=== PATIENT | female | born 1940 | race Caucasian/White ===

== ENCOUNTER 2017-01-07 09:51 | Inpatient (IN) | payer MEDICARE, BC ==
[2017-01-01 16:21] LABS: HEMATOCRIT 35.5 % (36.0-48.0); HEMOGLOBIN 11.1 g/dL (12.0-16.0)
[2017-01-01 16:32] LABS: BUN (BLOOD UREA NITROGEN) 9 MG/DL (6-23); CALCIUM, SERUM 8.5 MG/DL (8.5-10.4); CHLORIDE, SERUM 97 MMOL/L (96-112); CO2 (CARBON DIOXIDE) 29 MMOL/L (24-34); CREATININE 0.56 MG/DL (0.55-1.02); GFR AFRICAN AMERICAN 104 ML/MIN (>=60); GFR NON AFRICAN AMERICAN 90 ML/MIN (>=60); GLUCOSE, SERUM 92 MG/DL (60-99); POTASSIUM, SERUM 4.6 MMOL/L (3.5-5.3); SODIUM, SERUM 133 MMOL/L (135-148)
--- NOTE | ~2017-01-07 | OP ---
Record Of Operation [place] [address] [place]. [address] NAME: SAAD STORY : 39 STATUS : ADM IN PAT#: [id number] AGE: 76 ADM/REG DATE : 01/07/17 MR#: [id number] REPORT SERV DATE: 01/08/17 DICTATED BY: SHAE ANDRADE DATE: 01/07/17 REPORT STATUS : Draft TRANSCRIBED BY: MODL DATE: 01/07/17 DATE OF PROCEDURE: 01/07/2017 DICTATED BY: Josué Avery M.D. PREOPERATIVE DIAGNOSIS: Incisional ventral hernia. POSTOPERATIVE DIAGNOSIS: Incisional ventral hernia. PROCEDURES: 1. Laparoscopic ventral hernia repair with mesh. 2. Laparoscopic lysis of adhesions. SURGEON: Katerina Andrade M.D. RESIDENT: Josué Avery M.D. ANESTHESIA: General. ESTIMATED BLOOD LOSS: Less than 10 mL. IV FLUIDS: 1000 mL crystalloid. SPECIMEN: None. DRAINS: None. COMPLICATIONS: None. FINDINGS: The patient had two hernia defects showed at the midline at the umbilicus and one just superior to that. These hernia defects easily came together and were reapproximated with 0 Nurolon interrupted stitches. We had good 3.5 cm over extension coverage inferior to superior and then 5 cm laterally. INDICATIONS FOR PROCEDURE: This is a 76-year-old female, who has a symptomatic incisional ventral hernia from a previous laparoscopic colon resection in 2010. The patient sought surgery help to get this hernia repaired since it caused her considerate amount of pain. The risks, benefits, and alternatives were explained to the patient. The patient expressed clear understanding and wished to proceed forward with this elective procedure. DESCRIPTION OF PROCEDURE: After informed consent was obtained, the patient was taken back to the operative theatre. The patient was laid on the operating room table in supine position. The patient was given adequate analgesia and anesthesia and then successfully endotracheally intubated. The surgery site was then prepped and draped in a standard fashion. A formal time-out was then performed. Appropriate preoperative antibiotics had been administered. All present in the operating room were in agreement and elected to proceed forward with the Record Of Operation [place] [address] [facility] [place]. [address] NAME: SAAD STORY : 39 STATUS : ADM IN PAT#: [id number] AGE: 76 ADM/REG DATE : 01/07/17 MR#: [id number] REPORT SERV DATE: 01/08/17 DICTATED BY: SHAE ANDRADE DATE: 01/07/17 REPORT STATUS : Draft TRANSCRIBED BY: ELIUD DATE: 01/07/17 procedure. We began by administering local anesthetic and the left upper quadrant making an incision approximately 2 cm length, dissecting down bluntly and sharply incised the anterior rectus sheath below the dissected muscle and posterior rectus sheath and incised this. We bluntly tried to enter into the abdomen. Concern was the patient had a previous colon resection and in the operative note had a splenic flexure taken down as we tried to enter bluntly into the abdomen in the left upper quadrant. I felt there could possibly be significant adhesions. So, we then turned our attention to the right upper quadrant. Again, made an approximately 2 cm incision and then used blunt dissection to dissect down to the anterior rectus fascia. Anterior rectus sheath incised sharply, bluntly dissected down the posterior rectus sheath, incised this sharply and then bluntly dissected to the abdominal cavity. An 11-mm trocar was then placed at the abdomen. Air insufflation with pneumoperitoneum was achieved with 15 mmHg and the patient tolerated this well. Laparoscope was introduced into the abdomen. Quick surveillance revealed no blood and no bile, healthy- appearing liver, a significant amount of adhesions to the midline and into the hernia defect looked over at the left upper quadrant. There was no adhesions on left upper quadrant nor was there any sign that we had disrupted the peritoneum in the left upper quadrant. At this time, we placed a 5-mm trocar through a previous left upper quadrant incision and then placed two more 5-mm trocars on the left lateral side of the patient's abdomen. We then began the lysis of adhesion combination of sharp and electrocautery dissection. We then reduced the patient's hernia. Noted no bowel was in the hernia, just preperitoneal fat and omentum. Once all the hernia contents had been reduced, adhesions were lysed down, we then made a small incision over the incisional hernia defect and made tiny skin incision and then used a suture passer with a 0 Nurolon string in a simple interrupted fashion and reapproximated the fascia under direct laparoscopic vision. Both midline hernia defects were reapproximated with ease. To make it easier, we had desufflated the patient's abdomen, kept pneumoperitoneum between 6 and 8 mmHg. Fascia was reapproximated with the use with a 0 Nurolon in a simple interrupted stitches. We then at this time took a 15 x 10 cm Parietex mesh and cut it rounded out, placed two anchoring sutures at the inferior and superior portion of it and tied these and secured them to the mesh. Mesh was then rolled up, placed into the abdominal cavity, unrolled inside the abdominal cavity and the anchoring superior and inferior Nurolon stitches were then pulled through the abdominal wall with the aid of a suture passer. This showed us that we had good coverage of our hernia defect with at least 3.5 cm of extra coverage inferior and superior and with our fascia now reapproximated in the midline a 5 cm lateral coverage. We then used the laparoscopic tacking device and tacked the mesh up circumferentially along the anterior abdominal wall. Surveillance of mesh noted that we had mesh secured and anchored to the anterior abdominal wall with tacks, with no major gaps and it was fitting appropriately and this could be seen, between 6 to 8 mmHg pressure was held. We then desufflated the patient's abdomen. Removed all trocars. No bleeding was noted from the anterior abdominal wall from all trocar sites. The 11-mm trocar site prior to removing the last trocar with laparoscope, an 11-mm trocar in the right upper quadrant was closed with a suture passer in a [id number] with 0 Vicryl. Fascia was reapproximated very well. Removed the final trocar after the patient's abdomen had been desufflated adequately. We then reapproximated all skin incision sites with 4-0 Monocryl in a simple running subcuticular stitch fashion. Skin edges were reapproximated very well. Hemostasis was noted to have been achieved. Sterile dressings were then applied. Sterile drapes were then broken down. The patient was reversed from anesthesia and extubated in the operating room. The patient's vital signs were stable. The patient was transferred to [address] [id number] NAME: SAAD STORY : 39 STATUS : ADM IN [facility]#: [id number] AGE: 76 ADM/REG DATE : 01/07/17 MR#: [id number] REPORT SERV DATE: 01/08/17 DICTATED BY: SHAE ANDRADE DATE: 01/07/17 REPORT STATUS : Draft TRANSCRIBED BY: MODL DATE: 01/07/17 recovery in stable condition. DICTATED BY: MD DYLON Forte/ELIUD Katerina Andrade M.D. / [id number] CC: Katerina Andrade M.D.
[~2017-01-07 09:51] MED LIST: ACET500CAP PO; ADVIL PO; ALIGN PO; ATV.5 PO; AUG500 PO; AZASITE OPH; AZASITE1 % OPH; BL FLAX SEED1000 MG OR; CALTRA600D PO; CO Q-10100 MG PO; COSAMIN DS1 TAB PO; CRESTOR5 MG PO; DSS PO; FISH-EPA1000 MG PO; FLAXSEED OIL1000 MG PO; GLUCCHONDR PO; LOP25 PO; MAGOX4 PO; MINOCIN50 PO; MIRALAX POWDER1 PKT PO; MULTIPLE VIT PO; MULTIVITAMI1 PO; NIACIN100 PO; NIACIN750 MG PO; PRILO PO; PROAIR HFA INH; RYTHMOL150 MG PO; SENTAB PO; SYN.025B PO; SYN.05 PO; SYN075 PO; VITAMIN D1000 UNI1 PO; VITAMIN D2000 UNIT PO; VITAMIN D400 UNI1 PO; VITC500 PO; VITE PO; VOLTAREN1 % TOP; X5 PO; XANAX1 MG PO; XANAX2 MG PO; ZANTAC150 MG PO; [UNRECOGNIZED DRUG - OTHER]
[2017-01-07 20:07] LABS: BASOPHILS 0.2 %; BASOPHILS ABSOLUTE 0.02 10/3/uL (0.0-0.16); EOSINOPHILS 0.2 %; EOSINOPHILS ABSOLUTE 0.02 10/3/uL (0.0-0.53); HEMATOCRIT 32.5 % (36.0-48.0); HEMOGLOBIN 10.3 g/dL (12.0-16.0); IMMATURE GRANULOCYTES 0.2 %; IMMATURE GRANULOCYTES ABSOLUTE 0.02 10/3/uL (0.0-0.11); LYMPHOCYTES 13.1 %; LYMPHOCYTES ABSOLUTE 1.58 10/3/uL (0.67-4.30); MEAN CORPUS HGB CONC 31.7 g/dL (32.0-36.0); MEAN CORPUSCULAR HEMOGLOB 24.3 pg (26.0-34.0); MEAN CORPUSCULAR VOLUME 76.7 fL (80-100); MEAN PLATELET VOLUME 8.1 fL (9.2-13.0); MONOCYTES 4.7 %; MONOCYTES ABSOLUTE 0.57 10/3/uL (0.21-1.20); NEUTROPHILS 81.6 %; NEUTROPHILS ABSOLUTE 9.84 10/3/uL (2.02-8.40); RBC DISTRIBUTION WIDTH 24.4 % (12.0-16.0); RED CELL COUNT 4.24 10/6/uL (4.0-5.6)
[2017-01-07 20:08] LABS: MANUAL DIFF NO %; PLATELET COUNT 372 10/3/uL (150-400); WHITE BLOOD CELLS 12.1 10/3/uL (4.5-10.5)
[2017-01-07 20:22] LABS: BUN (BLOOD UREA NITROGEN) 7 MG/DL (6-23); CHLORIDE, SERUM 99 MMOL/L (96-112); CO2 (CARBON DIOXIDE) 30 MMOL/L (24-34); CPK (IF ELEVATED MB BANDS) 95 U/L (0-200); CREATININE 0.46 MG/DL (0.55-1.02); GFR AFRICAN AMERICAN 111 ML/MIN (>=60); GFR NON AFRICAN AMERICAN 96 ML/MIN (>=60); GLUCOSE, SERUM 141 MG/DL (60-99); PHOSPHORUS, SERUM 4.4 MG/DL (2.5-4.5); POTASSIUM, SERUM 3.5 MMOL/L (3.5-5.3); SODIUM, SERUM 137 MMOL/L (135-148); TROPONIN I <0.02 NG/ML (<0.05)
[2017-01-07 20:29] LABS: PLATELET ESTIMATE ADQ (ADEQUATE)
[2017-01-10] MEDS ORDERED: MOMUD PO (11:47)
== END 2017-01-10 14:30 | disposition home or self-care (01) | DRG 354 ==
LOC: SDC/OF 09:51 → PACU 14:41 → 5SO 16:18
PROVIDERS: Colon & Rectal Surgery; Surgery
PROC: 0WUF4JZ Supplement Abdominal Wall with Synthetic Substitute, Percutaneous Endoscopic Approach (ICD-10-PCS; principal; 2017-01-07 11:45)
DX: K43.2 Incisional hernia without obstruction or gangrene (principal); K56.7 Ileus, unspecified; I47.1 Supraventricular tachycardia; Z86.73 Personal history of transient ischemic attack (TIA), and cerebral infarction without residual deficits; F41.9 Anxiety disorder, unspecified; I10 Essential (primary) hypertension; Z88.2 Allergy status to sulfonamides; Z88.1 Allergy status to other antibiotic agents; Z88.8 Allergy status to other drugs, medicaments and biological substances; Z91.041 Radiographic dye allergy status; Z79.899 Other long term (current) drug therapy
CPT/HCPCS: 80048; 82550; 83735; 84100; 84484; 85014; 85018; 85025; 87641; 93005; 97116-GP; 97161-GP; A9270-GY; C1781; G8978-CK-GP; G8979-CJ-GP; J0690; J1885; J2250; J2270; J2405; J2710; J3010